=== PATIENT | female | born 1975 | race Caucasian/White ===

== ENCOUNTER 2019-08-12 14:10 | Observation (INO) ==
--- NOTE | 2019-08-12 09:52 | General Surg History&Physical ---
<Liya Juárez Nick - Last Filed: 08/12/19 09:55> Date of Encounter: 08/12/19 Time of Encounter: 09:45 Assessment and Plan (1) RUQ abdominal pain Current Visit: No Status: Acute The assessment and plan as outlined above was discussed with the patient and/or family members who expressed understanding and agreement. All questions were answered. Admit to hospital under the care of Dr. Sam C[place] IV fluids Proceed to the operating room for a laparoscopic cholecystectomy later today Supportive care and pain control IS every 1 hour while awake GI/DVT prophylaxis Ambulate TID Pre-operative antibiotics (2) Gallbladder polyp Current Visit: Yes Status: Acute The assessment and plan as outlined above was discussed with the patient and/or family members who expressed understanding and agreement. All questions were answered. Admit to hospital under the care of Dr. Sam C[place]AND IV fluids Proceed to the operating room for a laparoscopic cholecystectomy later today Supportive care and pain control IS every 1 hour while awake GI/DVT prophylaxis Ambulate TID Pre-operative antibiotics (3) Tobacco abuse Current Visit: Yes Status: Acute The assessment and plan as outlined above was discussed with the patient and/or family members who expressed understanding and agreement. All questions were answered. Nicotine patch as needed Smoking cessation education (4) Anxiety Current Visit: Yes Status: Acute The assessment and plan as outlined above was discussed with the patient and/or family members who expressed understanding and agreement. All questions were answered. Ativan prn for anxiety History of Present Illness Chief complaint: Abdominal pain with associated nausea and diarrhea HPI: Ms. Carrasco is a 43 year old female who has a complaint of right upper quadrant abdominal pain for approximately the last month. She states that the pain has progressed and is constant. She states that the pain is located in her right upper quadrant and radiates around into her back. The pain is intensified by eating any type of food at this time. She states that she is able to drink liquids. She states that anytime that she eats she either vomits or immediately has diarrhea. She reports having diarrhea anytime she tries to eat foods. She denies any melena or hematochezia. She denies any hematemesis or coffee-ground emesis. She has never had pain like this prior to 1 month ago. She admits to chills but denies any fevers. She denies any shortness of breath or chest pains. The patient has been admitted to the hospital due to the rapid progression of her symptoms and her inability to eat or drink normally. She also reports unintentional weight loss due to her inability to eat normally. She reports losing approximately 20 pounds over the past month. She is voiding without difficulty, clear yellow urine. Past Med Surg Social Fam HX - Past Medical History Source: patient, old records reviewed Medical history: non-contributory, asthma, migraine, other Additional medical history: other psoriasis. fibroids. arthropathic psoriasis. diverticulosis. hypertrophied anal papilla. anxiety. R breast calcification. tortuous colon. anal condyloma - pt denies Psychiatric history: anxiety - Past Surgical History Surgical History: appendectomy, breast surgery, hysterectomy, other Additional surgical history: excision of right thigh cyst. tubal ligation. Lap Appy. excision of right thigh cyst. B/L breast bx. right foot surgery cyst. exc of 3 scalp cust. colonoscopy. excision perianal mass - Social History Smoking Status: Current every day smoker Smokeless Tobacco Status: No Alcohol use: occasionally Drug use: none Current living situation: Home - Independent Activity Level: Independent ambulation - Family History Mother Living Status: Age at : 52 Cause of : Breast cancer Hx Family Cancer: Yes (Breast) Maternal Grandmother Living Status: Hx Family Cancer: Yes (Breast, Ovarian) Father Living Status: Still Living Paternal Grandfather Age at : 60 Cause of : Colon cancer Hx Family Cancer: Yes (Colon) Medications and Allergies Albuterol Sulfate [Proair Hfa] 2 puff IH Q6H PRN 11/04/15 [History] Budesonide/Formoterol 80/4.5 [Symbicort 80/4.5] 2 puff IH BID 11/04/15 [History] Cetirizine HCl [Zyrtec] 10 mg PO DAILY 01/09/18 [History] Secukinumab [Cosentyx Pen] 150 mg SQ QMONTH 01/09/18 [History] Docusate [Colace] 100 mg PO BID #30 capsule 01/26/19 [Rx] LORazepam [Ativan] 1 mg PO DAILY 01/26/19 [History] Montelukast [Singulair] 10 mg PO HS 01/26/19 [History] Hyoscyamine SL [Levsin SL] 0.125 mg SL Q4HR #20 tab.subl 07/24/19 [Rx] Ibuprofen 400 mg PO Q6H PRN #40 tablet 08/08/19 [Rx] Morphine Sulfate Immed Rel [Morphine Sulfate] 15 mg PO Q4HR PRN 2 Days #12 tab 08/08/19 [Rx] Ondansetron ODT [Zofran ODT] 4 mg SL Q6HR #16 tab.rapdis 08/08/19 [Rx] Allergy/AdvReac Type Severity Reaction Status Date / Time No Known Allergies Allergy Verified 01/26/19 07:04 Review of Systems All systems PM: reviewed and no additional remarkable complaints except as stated (in the HPI) All systems PM: The remainder of the systems were reviewed and are negative General Surgery Exam - General physical appearance well developed, well nourished, moderate distress, moderate pain - Eyes PERRL, normal ocular movement - ENT normal mucosa, atraumatic, normocephalic - Neck trachea midline - Respiratory normal expansion, normal respiratory effort, clear to auscultation - Cardiovascular Cardiovascular exam: Present: RRR - Abdomen Abdomen general surgery: Present: bowel sounds present, soft, tender Abdominal Tenderness: Present: RUQ - Integumentary Integumentary general surgery: Present: warm and dry - Neurologic Present: CN 2-12 grossly intact - Musculoskeletal Present: normal gait, normal posture - Psychiatric Psychiatric general surgery: Present: appropriate, oriented to person, oriented to place, oriented to time, speech is normal, memory intact Results - Labs All other labs normal. - Attending Attestation For this encounter, I have reviewed the FACILITIES MAINTENANCE ASSISTANT or PA documentation, treatment plan, and medical decision making; and I have had face to face time with this patient. <Rebecca Vargas - Last Filed: 08/12/19 17:31> Date of Encounter: 08/12/19 Assessment and Plan (1) RUQ abdominal pain Current Visit: No Status: Acute The assessment and plan as outlined above was discussed with the patient and/or family members who expressed understanding and agreement. All questions were answered. (2) Gallbladder polyp Current Visit: Yes Status: Acute The assessment and plan as outlined above was discussed with the patient and/or family members who expressed understanding and agreement. All questions were answered. (3) Tobacco abuse Current Visit: Yes Status: Acute The assessment and plan as outlined above was discussed with the patient and/or family members who expressed understanding and agreement. All questions were answered. (4) Anxiety Current Visit: Yes Status: Acute The assessment and plan as outlined above was discussed with the patient and/or family members who expressed understanding and agreement. All questions were answered. (5) Biliary colic Current Visit: Yes Status: Acute The assessment and plan as outlined above was discussed with the patient and/or family members who expressed understanding and agreement. All questions were answered. patient with symptoms of bililary colic, planning robotic cholecystectomy, possible cholangiograms, possible open, risks and benefits previously discussed and he wishes to proceed npo prn pain control ivf hydration History of Present Illness HPI: Ms. Carrasco is a 43 year old female Review of Systems All systems PM: The remainder of the systems were reviewed and are negative General Surgery Exam Initial Vital Signs Pulse Ox 99 08/12/19 09:50 Results - Labs 08/12/19 10:50 08/12/19 10:17 Abnormal lab results Chloride 108 mEq/L (98-107) H 08/12/19 10:17 Calcium 8.3 mg/dL (8.6-10.3) L 08/12/19 10:17 Diabetes panel 08/12/19 Range/Units 10:17 Sodium 139 (136-145) mEq/L Potassium 3.6 (3.5-5.1) mEq/L Chloride 108 H (98-107) mEq/L Carbon Dioxide 23 (23-29) mEq/L BUN 7 (6-20) mg/dL Creatinine 0.68 (0.60-1.20) mg/dL Glucose 80 (70-105) mg/dL Calcium 8.3 L (8.6-10.3) mg/dL AST 15 (13-39) Units/L ALT 11 (7-52) Units/L Alkaline Phosphatase 45 (34-104) Units/L Albumin 3.8 (3.5-5.7) g/dL Calcium panel 08/12/19 Range/Units 10:17 Calcium 8.3 L (8.6-10.3) mg/dL Albumin 3.8 (3.5-5.7) g/dL Pituitary panel 08/12/19 Range/Units 10:17 Sodium 139 (136-145) mEq/L Potassium 3.6 (3.5-5.1) mEq/L Chloride 108 H (98-107) mEq/L Carbon Dioxide 23 (23-29) mEq/L BUN 7 (6-20) mg/dL Creatinine 0.68 (0.60-1.20) mg/dL Glucose 80 (70-105) mg/dL Calcium 8.3 L (8.6-10.3) mg/dL Adrenal panel 08/12/19 Range/Units 10:17 Sodium 139 (136-145) mEq/L Potassium 3.6 (3.5-5.1) mEq/L Chloride 108 H (98-107) mEq/L Carbon Dioxide 23 (23-29) mEq/L BUN 7 (6-20) mg/dL Creatinine 0.68 (0.60-1.20) mg/dL Glucose 80 (70-105) mg/dL Calcium 8.3 L (8.6-10.3) mg/dL Total Bilirubin 0.4 (0.3-1.0) mg/dL AST 15 (13-39) Units/L ALT 11 (7-52) Units/L Alkaline Phosphatase 45 (34-104) Units/L Albumin 3.8 (3.5-5.7) g/dL All other labs normal. - Attending Attestation I have personally performed a face to face evaluation on this patient. I have reviewed and agree with the care plan. History and Exam by me shows:
[2019-08-12 11:24] LABS: Basophils % 0.4 %; Eosinophils # 0.2 K/mcL (0.0-0.6); Eosinophils % 1.6 %; Hematocrit 42.1 % (35.3-44.9); Hemoglobin 14.2 g/dL (11.5-15.4); Immature Granulocytes % 0.4 % (0-4); Lymphocytes # 2.2 K/mcL (0.6-4.6); Lymphocytes % 22.3 %; Mean Corpuscular HGB Conc 33.7 g/dL (31.6-35.5); Mean Corpuscular Hemoglobin 30.3 pg (28.0-33.3); Mean Platelet Volume 9.5 fL (9.4-12.4); Monocytes # 0.7 K/mcL (0.0-1.3); Monocytes % 7.4 %; Neutrophils # 6.7 K/mcL (1.6-8.9); Platelet Count 313 K/mcL (140-400); Red Blood Count 4.68 M/mcL (3.82-4.97); Red Cell Distribution Width 12.5 % (11.5-14.5); Segmented Neutrophils % 67.9 %
[2019-08-12 11:29] LABS: Alanine Aminotransferase 11 Units/L (7-52); Albumin 3.8 g/dL (3.5-5.7); Albumin/Globulin Ratio 1.5 (1.1-2.2); Alkaline Phosphatase 45 Units/L (34-104); Aspartate Amino Transferase 15 Units/L (13-39); BUN/Creatinine Ratio 10 (6-26); Bilirubin,Direct 0.1 mg/dL (0.0-0.2); Bilirubin,Indirect 0.3 mg/dL (0.0-1.2); Bilirubin,Total 0.4 mg/dL (0.3-1.0); Blood Urea Nitrogen 7 mg/dL (6-20); Calcium 8.3 mg/dL (8.6-10.3); Carbon Dioxide 23 mEq/L (23-29); Chloride 108 mEq/L (98-107); Globulin 2.6 g/dL (2.4-3.5); Glucose 80 mg/dL (70-105); Osmolality,Calculated 285 (280-300); Potassium 3.6 mEq/L (3.5-5.1); Sodium 139 mEq/L (136-145); Total Protein 6.4 g/dL (6.4-8.9); eGFR For African Americans > 60 (> 60); eGFR For Non-African Americans > 60 (> 60)
[2019-08-12 11:35] LABS: White Blood Count 9.9 K/mcL (4.3-11.1)
[~2019-08-12 14:10] MED LIST: *HR* LORazepam 2 MG/ML VIAL IVP PRN; 0.9 % Sodium Chloride 1,000 ML IVC SCH; Acetaminophen 325 MG TABLET PO PRN; Ipratropium/Albuterol Neb 3 ML IH ONE; Ipratropium/Albuterol Neb 3 ML IH PRN; Naloxone 0.4 MG/ML INJ IVP PRN; Ondansetron 4 MG/2 ML VIAL IVP PRN; cefOXitin 2,000 MG in 0.9 % Sodium Chloride Mini Bag 100 ML IVPB ONE
[2019-08-12] MEDS ORDERED: *HR* Propofol 200 MG/20 ML VIAL IVP ONE (17:11)
[2019-08-12] MEDS ORDERED: Albuterol 2.5 MG/3 ML NEBULIZER IH ONE ×2 (17:11→18:58)
[2019-08-12] MEDS ORDERED: *HR* FentaNYL (PF) 100 MCG/2 ML VIAL ONE ×2 (17:11→18:33)
[2019-08-12] MEDS ORDERED: *HR* Midazolam HCl 2 MG/2 ML VIAL ONE (17:11)
[2019-08-12] MEDS ORDERED: Lidocaine -MPF 2% 2 ML VIAL ONE (17:14)
[2019-08-12] MEDS ORDERED: Ondansetron 4 MG/2 ML VIAL ONE (17:14)
[2019-08-12] MEDS ORDERED: *HR* Rocuronium Bromide 50 MG/5 ML VIAL ONE (17:14)
[2019-08-12] MEDS ORDERED: *HR* Succinylcholine 200 MG/10 ML VIAL IVP ONE (17:14)
[2019-08-12] MEDS ORDERED: Dexamethasone 4 MG/ML VIAL ONE (17:14)
--- NOTE | 2019-08-12 17:14 | Anesthesia Evaluation PreOp ---
Date of Encounter: 08/12/19 Time of Encounter: 17:11 - Past History Planned Operation: Robotic lap sascha Cardiac History: Denies any Significant Hx Pulmonary History: Former smoker, Asthma ANTHROPOLOGY INSTRUCTOR History: Other (anxiety) Other Medical History: Denies Any Significant HX Anesthesia History: No Prior Anesthetic Complications, Past Anesthesia (R breast bx) Alcohol Use: occasionally Drug use: none Medications and Allergies Albuterol Sulfate [Proair Hfa] 2 puff IH Q6H PRN 11/04/15 [History] Budesonide/Formoterol 80/4.5 [Symbicort 80/4.5] 2 puff IH BID 11/04/15 [History] Cetirizine HCl [Zyrtec] 10 mg PO DAILY 01/09/18 [History] Secukinumab [Cosentyx Pen] 150 mg SQ QMONTH 01/09/18 [History] Docusate [Colace] 100 mg PO BID #30 capsule 01/26/19 [Rx] LORazepam [Ativan] 1 mg PO DAILY 01/26/19 [History] Montelukast [Singulair] 10 mg PO HS 01/26/19 [History] Hyoscyamine SL [Levsin SL] 0.125 mg SL Q4HR #20 tab.subl 07/24/19 [Rx] Ibuprofen 400 mg PO Q6H PRN #40 tablet 08/08/19 [Rx] Morphine Sulfate Immed Rel [Morphine Sulfate] 15 mg PO Q4HR PRN 2 Days #12 tab 08/08/19 [Rx] Ondansetron ODT [Zofran ODT] 4 mg SL Q6HR #16 tab.rapdis 08/08/19 [Rx] Allergy/AdvReac Type Severity Reaction Status Date / Time No Known Allergies Allergy Verified 01/26/19 07:04 - Meds/Allergy Pre-op Review Medications Reviewed: Yes Allergies Reviewed: Yes Beta Blockers on Current Med List: No Anesthesia Results - Labs 08/12/19 10:50 08/12/19 10:17 - Imaging EKG: report reviewed ( Interpretive Statements Sinus rhythm Electronically Signed On 07-27-2019 6:22:39 EDT by Mikel Jackson) Anesthesia Exam Vital Signs/O2 Sat, Most Current Temp Pulse Resp BP Pulse Ox 97.8 F 72 15 136/90 97 08/12/19 13:53 08/12/19 13:53 08/12/19 13:53 08/12/19 13:53 08/12/19 13:53 Weight: 92kg NPO (# of Hours): >8 - HEENT Pupil (Motor): Pupils equal, EOMI Mallampati: I Teeth: Normal Oral Opening: Greater than 3 - ANTHROPOLOGY INSTRUCTOR LOC: Oriented ANTHROPOLOGY INSTRUCTOR Motor: Normal RUE, Normal LUE, Normal RLE, Normal LLE, Normal Face ANTHROPOLOGY INSTRUCTOR Sensory: Normal: RUE, LUE, RLE, LLE, Face - Cardiac Rhythm: Regular - Pulmonary Breath Sounds: bilateral Clear Respiratory Effort: Symmetrical Anesthesia Assess/Plan ASA Score: 2 Level of consciousness: Cooperative Anesthetic Plan: General Monitoring Plan: Standard Monitors Recovery Plan: PACU
[2019-08-12] MEDS ORDERED: Lidocaine HCL 4 ML Topical Solution (Laryng-O-Jet Kit Sterile Pak) TP ONE (17:17)
[2019-08-12] MEDS ORDERED: CefOXitin 2,000 MG VIAL ONE (17:56)
--- NOTE | 2019-08-12 18:07 | Operative Note ---
Date of procedure: 08/12/19 Pre-op diagnosis: biliary colic Post-op diagnosis: same Procedure: RObotic cholecystectomy Complications: none immediate Anesthesia: JOSE, local Surgeon: Rebecca Vargas Was there an technology assistant present: Yes Seo Executive: Blanca Green Estimated blood loss (cc): 3 Specimen: gallbladder and contents Condition: stable Disposition: PACU Procedure in Detail: Patient was brought into the operating suite. Placed supine on the operating table. Sign-in was performed and everyone was in agreement. Anesthesia was induced and patient was endotracheally intubated by anesthesia without incident and they also placed an OG-tube. Patient's bilateral arms were tucked at their sides.. The abdomen was prepped and draped in the usual sterile fashion. Timeout was performed again everyone was in agreement. A supraumbilical incision was made through the skin into the subcutaneous tissue with an 11 blade. Towel clamps were placed in either side of the umbilicus for retraction. We used S retractors to dissect down to the anterior abdominal wall linea alba fascia. A Veress needle was placed in this incision and the water-drop test confirmed placement. The abdomen was insufflated. We then entered the abdomen with a 5 mm 0 degree laparoscope and a 5 mm X-candi trocar. The area under entry was visualized there was no bleeding and no apparent bowel injury. We placed an 8 mm robotic port in the left lateral abdominal wall position under direct visualization after first incising the skin with an 11 blade. We then placed a right lateral abdominal wall 8 mm robotic port under direct visualization after first incising the skin with 11 blade.The supraumbilical 5 mm port was exchanged for a 12 mm port. We placed the 5 mm port in the right abdominal wall lateral to the 8mm port, after first incising the skin with an 11 blade. The patient was placed in slight reverse Trendelenburg left side down position. The robot was brought over the patient's right abdomen and all port sites and instruments as well as the camera were docked. The dome of the gallbladder was grasped and retracted cephalad by the technology assistant. The infundibulum of the gallbladder was grasped and retracted laterally. Using a right angle heated hook we dissected out the cystic duct and cystic artery. The cystic artery was coagulated and transected with the hook cautery. Two hemoclips were placed distally on the cystic duct, 1 proximally, and it was transected with curved scissors. The gallbladder was removed off the cystic plate with the Bovie and any bleeding points were stopped with the Bovie. The gallbladder was then placed in a laparoscopic Endo Catch bag and removed via the supraumbilical incision site. The inferior edge of the liver was bluntly retracted cephalad. The cystic plate was irrigated with sterile saline. There was no bleeding and no apparent bile leak. The clips on the cystic duct were evaluated and they were intact and without any apparent bleeding or bile leak. All irrigation was suctioned free from the abdomen. All insufflation was suctioned free from the abdomen and the trochars were removed. The abdominal wall at the supraumbilical incision site was closed with an 0 Vicryl figure of 8 stitch. 30 mL of 0.5% Marcaine plain was injected subcutaneously at the 4 port sites. We closed the skin at the two 8 mm and 5 mm port site with 4-0 Monocryl interrupted subcuticular stitches. The skin at the supraumbilical incision site was closed with a 4-0 Monocryl running subcuticular stitch. Steri-Strips and mastisol were applied to all wounds. The patient was awoken in the operating suite having tolerated the procedure well and was taken to PACU in stable condition after all lap and instrument counts were correct at the end of the case.
[2019-08-12] MEDS ORDERED: EPHEDrine 50 MG/ML VIAL ONE (18:26)
[2019-08-12] MEDS ORDERED: Ketorolac 30 MG/ML VIAL ONE (18:37)
[2019-08-12] MEDS ORDERED: *HR* HYDROmorphone (PF) 1 MG/ML SYRINGE IVP PRN (18:58)
[2019-08-12] MEDS ORDERED: Ketorolac 30 MG/ML VIAL IVP ONE (18:58)
[2019-08-12] MEDS ORDERED: *HR* OxyCODONE Immed Rel 5 MG TABLET PO PRN (18:58)
[2019-08-12] MEDS ORDERED: *HR* Meperidine 25 MG/ML SYRINGE ONE (19:04)
[2019-08-12] MEDS: *HR* Meperidine 25 MG/ML SYRINGE IVP PRN ×2 (19:05→19:21)
[2019-08-12] MEDS ORDERED: *HR* OxyCODONE/APAP 5/325 TABLET PO PRN (20:12)
[2019-08-12] MEDS ORDERED: Ipratropium/Albuterol Neb 3 ML IH PRN (20:12)
[2019-08-12] MEDS ORDERED: Naloxone 0.4 MG/ML INJ IVP PRN (20:12)
[2019-08-12] MEDS ORDERED: 0.9 % Sodium Chloride 1,000 ML IVC SCH (20:12)
[2019-08-12] MEDS ORDERED: Ondansetron 4 MG/2 ML VIAL IVP PRN (20:12)
--- NOTE | 2019-08-12 22:26 | Anesthesia Evaluation Post Op ---
Date of Encounter: 08/12/19 Time of Encounter: 19:47 - Discharge PostOp Status: Transfer Patient to floor (Patient's vital signs have been reviewed. Patient is stable postoperatively and has adequately recovered from anesthesia. Patient is determined to have stable airway patency and respiratory function including respiratory rate and oxygen saturation. Patient has a stable heart rate, blood pressure and adequate hydration. Patients mental status is acceptable. Patients temperature is appropriate. Pain and nausea are adequately controlled)
[2019-08-13] MEDS ORDERED: Pantoprazole 40 MG VIAL IVP SCH ×2 (09:00)
[2019-08-13] MEDS ORDERED: Loratadine 10 MG TABLET PO SCH (09:00)
[2019-08-13] MEDS ORDERED: Ibuprofen 800 MG TABLET PO ONE (09:34)
[2019-08-13] MEDS ORDERED: Simethicone 80 MG TAB.CHEW PO STA (09:35)
--- NOTE | 2019-08-13 09:36 | Discharge Summary ---
Orders not resulted at time of discharge: Pending orders 08/12/19 18:48 Surgical Pathology [PTH] Routine Date of Encounter: 08/13/19 Time of Encounter: 11:37 - Discharge Diagnosis (1) Biliary colic Priority: Primary Status: Resolved General Surgery Exam Initial Vital Signs Pulse Ox 99 08/12/19 09:50 - General physical appearance no distress, moderate pain (controlled) - Neck trachea midline - Respiratory normal expansion, normal respiratory effort - Cardiovascular Cardiovascular exam: Present: RRR - Abdomen Abdomen general surgery: Present: bowel sounds present, soft, tender (Expected postoperative) - Incision Incision: Present: clean and dry, intact - Integumentary Integumentary general surgery: Present: warm and dry - Neurologic Present: normal sensation - Musculoskeletal Present: normal gait, normal posture - Psychiatric Psychiatric general surgery: Present: A&Ox3 - Hospital Course Hospital course: Ms. Carrasco is a 43 year old female who presented on 08/12/2019 for biliary colic. She was taken to the operating room on the same day where she underwent an uncomplicated laparoscopic cholecystectomy. This a.m. she ate bailey and sausage and stated she had abdominal pain shortly afterwards but feels like she may have tried to eat too much too quickly. Her discomfort was treated with ibuprofen, Juan David, and the lidocaine patch. She states this was effective. She refuses narcotics at discharge. She is ambulating and voiding without difficulty, tolerating a bland diet, vital signs are stable, and she is afebrile. We will begin discharge planning to home with a follow-up in approximately 2 weeks. - Time Spent with Patient Total time spent providing and/or coordinating discharge services: - Discharge Medications Prescriptions: New Docusate Sodium [Colace] 100 mg PO BID PRN #30 capsule PRN Reason: Contstipation Ibuprofen 800 mg PO Q8H PRN #30 tablet PRN Reason: Postsurgical pain Lidocaine Patch [Lidoderm 5% patch] 1 each TP DAILY PRN 7 Days #7 adh..patch PRN Reason: abdominal pain Continued Budesonide/Formoterol 80/4.5 [Symbicort 80/4.5] 2 puff IH BID Albuterol Sulfate [Proair Hfa] 2 puff IH Q6H PRN PRN Reason: Shortness Of Breath Cetirizine HCl [Zyrtec] 10 mg PO DAILY Secukinumab [Cosentyx Pen] 150 mg SQ QMONTH Montelukast [Singulair] 10 mg PO HS Fluticasone Propionate Nasal [Flonase] 2 spr NS DAILY PRN PRN Reason: Allergy Symptoms Home Medications: Albuterol Sulfate [Proair Hfa] 2 puff IH Q6H PRN 11/04/15 [History] Budesonide/Formoterol 80/4.5 [Symbicort 80/4.5] 2 puff IH BID 11/04/15 [History] Cetirizine HCl [Zyrtec] 10 mg PO DAILY 01/09/18 [History] Secukinumab [Cosentyx Pen] 150 mg SQ QMONTH 01/09/18 [History] Montelukast [Singulair] 10 mg PO HS 01/26/19 [History] Fluticasone Propionate Nasal [Flonase] 2 spr NS DAILY PRN 08/12/19 [History] Docusate Sodium [Colace] 100 mg PO BID PRN #30 capsule 08/13/19 [Rx] Ibuprofen 800 mg PO Q8H PRN #30 tablet 08/13/19 [Rx] Lidocaine Patch [Lidoderm 5% patch] 1 each TP DAILY PRN 7 Days #7 adh..patch 08/13/19 [Rx] Allergies/Adverse Reactions: Allergy/AdvReac Type Severity Reaction Status Date / Time No Known Allergies Allergy Verified 08/12/19 20:44 Date of admission: 08/12/19 09:10 Primary care physician: PCP NONE Discharging clinician: Sherie Antunez Anticipated date of discharge: 08/13/19 Labs on day of discharge: Labs from last 24 hours 08/12/19 08/12/19 08/12/19 12:05 10:50 10:17 WBC 9.9 D RBC 4.68 Hgb 14.2 Hct 42.1 MCV 90.0 MCH 30.3 MCHC 33.7 RDW 12.5 Plt Count 313 MPV 9.5 Immature Gran % 0.4 Seg Neutrophils % 67.9 Lymphocytes % 22.3 Monocytes % 7.4 Eosinophils % 1.6 Basophils % 0.4 Neutrophils # 6.7 Lymphocytes # 2.2 Monocytes # 0.7 Eosinophils # 0.2 Basophils # 0.0 Sodium 139 Potassium 3.6 Chloride 108 H Carbon Dioxide 23 BUN 7 Creatinine 0.68 Est GFR ( Amer) > 60 Est GFR (Non-Af Amer) > 60 BUN/Creatinine Ratio 10 Glucose 80 POC Glucose 77 Calculated Osmolality 285 Calcium 8.3 L Total Bilirubin 0.4 Direct Bilirubin 0.1 Indirect Bilirubin 0.3 AST 15 ALT 11 Alkaline Phosphatase 45 Serum Total Protein 6.4 Albumin 3.8 Globulin 2.6 Albumin/Globulin Ratio 1.5 - Patient Status Disposition: Home, Self-Care Condition: Good Functional capacity at discharge: independent ambulation Overall status at discharge: patient is progressing back to baseline - Discharge Instructions Instructions: Laparoscopic Cholecystectomy (DC) Follow Up With: Sherie Antunez CNP [Advanced Practice Nurse] - 08/25/19 1:00 pm NONE,PCP [Primary Care Provider] - Additional Instructions: General Surgical Discharge Instructions 1. No pushing, pulling, or lifting greater than 15 lbs for 4 weeks. 2. You may remove your dressings and shower beginning today, but no tub baths, soaking, or swimming for 2 weeks. 3. No driving for one weeks unless otherwise specified and then you may resume driving when you are off narcotics and are safe to react in a car. 4. Apply ice 20 minutes every hour that you are awake to your abdomen and Take ibuprofen every 8 hours for discomfort. You can alternate Tylenol every 8 hours. You can also apply one lidocaine patch daily for 12 hours. The patch can also be cut in half so that you can place it on 2 different areas of the abdomen. 5. Take stool softeners (Colace) or a water based laxative (Miralax) while taking narcotics. You may hold for loose stools. 6. Report any fevers greater than 100.5F, increase abdominal discomfort, drainage that looks like pus, increased redness or pain at the surgical site, or any vomiting. 7. Report any pain in the calves, shortness of breath, or rapid heartbeat. 8. Follow-up in the office as directed. 9. If you were prescribed antibiotics, do not stop them without talking to your provider. - Diet and Activity Activity: increase activity as tolerated, return to work once cleared by your PCP/specialist Diet: advance to your usual diet
[2019-08-13 11:25] VITALS: BP 127/82
== END 2019-08-13 14:19 | disposition home or self-care (01) ==
LOC: 3ANU → EDSTATUS 17:30
PROVIDERS: ADMIT Surgery; ATTEND Surgery

== ENCOUNTER 2021-02-14 11:09 | Observation (INO) ==
[2021-02-14 11:56] LABS: Basophils % 0.1 %; Hematocrit 44.6 % (35.3-44.9); Hemoglobin 15.3 g/dL (11.5-15.4); Immature Granulocytes % 0.3 % (0-4); Lymphocytes % 6.9 %; Mean Corpuscular HGB Conc 34.3 g/dL (31.6-35.5); Mean Corpuscular Hemoglobin 30.5 pg (28.0-33.3); Mean Corpuscular Volume 88.8 fL (83.0-100.0); Mean Platelet Volume 9.4 fL (9.4-12.4); Monocytes # 0.4 K/mcL (0.0-1.3); Monocytes % 2.4 %; Neutrophils # 13.1 K/mcL (1.6-8.9); Platelet Count 364 K/mcL (140-400); Red Blood Count 5.02 M/mcL (3.82-4.97); Segmented Neutrophils % 90.3 %
[2021-02-14 11:57] LABS: White Blood Count 14.5 K/mcL (4.3-11.1)
[2021-02-14 12:10] LABS: INR 1.1; Prothrombin Time 12.6 Seconds (9.4-12.1)
[2021-02-14 12:12] LABS: Activated Partial Thrombo Time 27.8 Seconds (26.0-36.0)
[2021-02-14 12:17] LABS: Alanine Aminotransferase 15 Units/L (7-52); Albumin 4.4 g/dL (3.5-5.7); Albumin/Globulin Ratio 1.3 (1.1-2.2); Alkaline Phosphatase 71 Units/L (34-104); Aspartate Amino Transferase 16 Units/L (13-39); BUN/Creatinine Ratio 20 (6-26); Bilirubin,Total 0.4 mg/dL (0.3-1.0); Blood Urea Nitrogen 16 mg/dL (6-20); Calcium 9.8 mg/dL (8.6-10.3); Carbon Dioxide 24 mEq/L (23-29); Chloride 104 mEq/L (98-107); Globulin 3.4 g/dL (2.4-3.5); Glucose 185 mg/dL (70-105); Osmolality,Calculated 292 (280-300); Potassium 3.4 mEq/L (3.5-5.1); Sodium 138 mEq/L (136-145); Total Protein 7.8 g/dL (6.4-8.9); eGFR For African Americans > 60 (> 60); eGFR For Non-African Americans > 60 (> 60)
[2021-02-14 12:29] LABS: Thyroid Stimulating Hormone 0.402 mcIU/mL (0.340-5.600)
[2021-02-14 15:50] LABS: Bacteria,Urine Few per hpf (None-Few); Bilirubin,Urine Negative (Negative); Blood,Urine Negative (Negative); Clarity,Urine Clear (Clear); Color,Urine Light-Yellow (Yellow); Glucose,Urine (UA) Normal (Normal); Ketones,Urine Negative (Negative); Leukocyte Esterase,Urine Small (Negative); Mucus,Urine Few per lpf (None-Few); Nitrite,Urine Negative (Negative); PH,Urine 6.5 pH Units (5.0-8.0); Protein,Urine Trace mg/dL (Neg-Trace); RBC,Urine 0-3 per hpf (0-3); Specific Gravity,Urine > 1.030 (1.010-1.025); Squamous Epithelial Cell,Urine Moderate per hpf (None-Few); Urobilinogen,Urine Normal (Normal)
[2021-02-14 16:30] LABS: Troponin I < 0.03 ng/mL (< 0.04)
[2021-02-14] MEDS ORDERED: *HR* Metoprolol 5 MG/5 ML VIAL IVP ONE (16:35)
[2021-02-14] MEDS ORDERED: Naloxone 0.4 MG/ML INJ IVP PRN (17:10)
[2021-02-14] MEDS ORDERED: Ondansetron 4 MG/2 ML VIAL IVP PRN (17:10)
[2021-02-14] MEDS ORDERED: Perflutren Lipid Microsphere 1.3 ML in 0.9 % Sodium Chloride 8.7 ML IVP PRN (17:13)
[2021-02-14] MEDS: 0.9 % Sodium Chloride 1,000 ML IVC SCH (19:30)
[2021-02-14] MEDS: Budesonide/Formoterol 80/4.5 1 PUFF INH IH SCH (23:00)
[2021-02-15 01:55] LABS: Basophils # 0.1 K/mcL (0.0-0.2); Basophils % 0.4 %; Eosinophils # 0.1 K/mcL (0.0-0.6); Eosinophils % 0.7 %; Hematocrit 40.3 % (35.3-44.9); Hemoglobin 13.9 g/dL (11.5-15.4); Immature Granulocytes % 0.4 % (0-4); Lymphocytes # 3.6 K/mcL (0.6-4.6); Lymphocytes % 27.3 %; Mean Corpuscular HGB Conc 34.5 g/dL (31.6-35.5); Mean Corpuscular Hemoglobin 30.3 pg (28.0-33.3); Mean Platelet Volume 9.7 fL (9.4-12.4); Monocytes # 1.1 K/mcL (0.0-1.3); Monocytes % 7.9 %; Neutrophils # 8.5 K/mcL (1.6-8.9); Platelet Count 332 K/mcL (140-400); Red Blood Count 4.58 M/mcL (3.82-4.97); Red Cell Distribution Width 12.3 % (11.5-14.5); Segmented Neutrophils % 63.3 %; White Blood Count 13.4 K/mcL (4.3-11.1)
[2021-02-15 02:13] LABS: BUN/Creatinine Ratio 21 (6-26); Blood Urea Nitrogen 16 mg/dL (6-20); Calcium 8.8 mg/dL (8.6-10.3); Carbon Dioxide 22 mEq/L (23-29); Chloride 108 mEq/L (98-107); Cholesterol 188 mg/dL (< 200); Glucose 102 mg/dL (70-105); HDL Cholesterol 59 mg/dL (40-59); Magnesium 1.7 mg/dL (1.6-2.6); Osmolality,Calculated 289 (280-300); Phosphorous 3.4 mg/dL (2.7-4.5); Potassium 3.4 mEq/L (3.5-5.1); Sodium 139 mEq/L (136-145); Triglycerides 122 mg/dL (< 150); eGFR For African Americans > 60 (> 60); eGFR For Non-African Americans > 60 (> 60)
[2021-02-15 02:14] LABS: Chol/HDL Ratio 3.2 (0-4.9); LDL Cholesterol,Calculated 105 mg/dL (< 100)
[2021-02-15 02:15] LABS: Troponin I < 0.03 ng/mL (< 0.04)
[2021-02-15 02:36] LABS: Folate 14.4 ng/mL (3.0-16.0)
[2021-02-15] MEDS: 0.9 % Sodium Chloride 1,000 ML IVC SCH (05:04)
[2021-02-15] MEDS: Budesonide/Formoterol 80/4.5 1 PUFF INH IH SCH (10:36)
[2021-02-15 15:37] VITALS: BP 118/81
== END 2021-02-15 16:46 | disposition home or self-care (01) ==
LOC: EMEROOARM 11:09 → 3BNU 11:09 → SUATTDRO 16:59 → 3BNU 18:40
PROVIDERS: ADMIT Family Medicine; ATTEND Registered Nurse

== ENCOUNTER 2021-11-10 08:49 | Inpatient (IN) ==
[2021-11-10] MEDS ORDERED: Piperacillin/Tazobactam 3.375 GM in Water for inj. (sterile) 20 ML IVP ONE (10:00)
[2021-11-10] MEDS ORDERED: 0.9 % Sodium Chloride 1,000 ML IVC SCH ×2 (10:00→11:30)
[2021-11-10 10:12] LABS: Basophils % 0.8 %; Eosinophils # 0.2 K/mcL (0.0-0.6); Eosinophils % 3.2 %; Hematocrit 40.5 % (35.3-44.9); Hemoglobin 13.6 g/dL (11.5-15.4); Immature Granulocytes % 0.2 % (0-4); Lymphocytes # 1.2 K/mcL (0.6-4.6); Mean Corpuscular HGB Conc 33.6 g/dL (31.6-35.5); Mean Corpuscular Hemoglobin 29.8 pg (28.0-33.3); Mean Corpuscular Volume 88.6 fL (83.0-100.0); Mean Platelet Volume 9.4 fL (9.4-12.4); Monocytes # 0.5 K/mcL (0.0-1.3); Monocytes % 10.7 %; Platelet Count 354 K/mcL (140-400); Red Blood Count 4.57 M/mcL (3.82-4.97); Red Cell Distribution Width 12.8 % (11.5-14.5); Segmented Neutrophils % 61.1 %
[2021-11-10 10:20] LABS: BUN/Creatinine Ratio 14 (6-26); Blood Urea Nitrogen 10 mg/dL (6-20); Calcium 9.3 mg/dL (8.6-10.3); Carbon Dioxide 24 mEq/L (23-29); Chloride 104 mEq/L (98-107); Glucose 105 mg/dL (70-105); Osmolality,Calculated 281 (280-300); Potassium 3.3 mEq/L (3.5-5.1); Sodium 136 mEq/L (136-145); eGFR For African Americans > 60 (> 60); eGFR For Non-African Americans > 60 (> 60)
[2021-11-10] MEDS ORDERED: Ondansetron 4 MG/2 ML VIAL IVP PRN (11:23)
[2021-11-10] MEDS ORDERED: Naloxone 0.4 MG/ML INJ IVP PRN (11:23)
[2021-11-10] MEDS: *HR* Heparin 5,000 UNIT/ML VIAL SQ SCH ×2 (13:11→21:11)
[2021-11-10] MEDS: Potassium Chloride 40 MEQ in D5% in 0.45% NACL 1,000 ML IVC SCH (13:11)
[2021-11-10] MEDS: Piperacillin/Tazobactam 3.375 GM in 0.9 % Sodium Chloride Mini Bag 100 ML IVPB SCH (17:33)
[2021-11-10 18:47] LABS: Adenovirus F 40/41 PCR Not detected (Not detect); Astrovirus PCR Not detected (Not detect); C.difficile Toxin A/B Gene PCR Not detected (Not detect); Campylobacter by PCR Not detected (Not detect); Cryptosporidium by PCR Not detected (Not detect); Cyclospora cayetanensis PCR Not detected (Not detect); E. coli O157 by PCR Not detected (Not detect); Entamoeba histolytica PCR Not detected (Not detect); Enteroaggregative E.coli(EAEC) Not detected (Not detect); Enteropathogenic E.coli(EPEC) Not detected (Not detect); Enterotoxigenic E.coli (ETEC) Not detected (Not detect); Giardia lamblia PCR Not detected (Not detect); Norovirus GI/GII PCR Not detected (Not detect); Plesiomonas shigelloides PCR Not detected (Not detect); Rotavirus A PCR Not detected (Not detect); Salmonella PCR Not detected (Not detect); Sapovirus PCR Not detected (Not detect); Shig/EnteroinvasiveE coli EIEC Not detected (Not detect); Shigalike tox-prod E coli STEC Not detected (Not detect); Vibrio PCR Not detected (Not detect); Vibrio cholerae PCR Not detected (Not detect); Yersinia enterocolitica PCR Not detected (Not detect)
[2021-11-10] MEDS: Budesonide/Formoterol 80/4.5 1 PUFF INH IH SCH (21:05)
[2021-11-11] MEDS: Piperacillin/Tazobactam 3.375 GM in 0.9 % Sodium Chloride Mini Bag 100 ML IVPB SCH ×3 (02:40→17:15)
[2021-11-11 04:10] LABS: Basophils # 0.1 K/mcL (0.0-0.2); Basophils % 1.2 %; Eosinophils # 0.2 K/mcL (0.0-0.6); Eosinophils % 4.5 %; Hematocrit 38.5 % (35.3-44.9); Hemoglobin 12.7 g/dL (11.5-15.4); Immature Granulocytes % 0.2 % (0-4); Lymphocytes # 1.9 K/mcL (0.6-4.6); Lymphocytes % 46.1 %; Mean Corpuscular Hemoglobin 29.6 pg (28.0-33.3); Mean Corpuscular Volume 89.7 fL (83.0-100.0); Mean Platelet Volume 9.4 fL (9.4-12.4); Monocytes # 0.6 K/mcL (0.0-1.3); Monocytes % 14.5 %; Neutrophils # 1.3 K/mcL (1.6-8.9); Platelet Count 327 K/mcL (140-400); Red Blood Count 4.29 M/mcL (3.82-4.97); Red Cell Distribution Width 12.7 % (11.5-14.5); Segmented Neutrophils % 33.5 %
[2021-11-11 04:32] LABS: BUN/Creatinine Ratio 10 (6-26); Blood Urea Nitrogen 7 mg/dL (6-20); Calcium 8.5 mg/dL (8.6-10.3); Carbon Dioxide 20 mEq/L (23-29); Chloride 108 mEq/L (98-107); Glucose 85 mg/dL (70-105); Magnesium 1.8 mg/dL (1.6-2.6); Osmolality,Calculated 279 (280-300); Potassium 3.7 mEq/L (3.5-5.1); Sodium 136 mEq/L (136-145); eGFR For African Americans > 60 (> 60); eGFR For Non-African Americans > 60 (> 60)
[2021-11-11] MEDS: *HR* Heparin 5,000 UNIT/ML VIAL SQ SCH ×2 (05:59→14:09)
[2021-11-11] MEDS: Potassium Chloride 40 MEQ in D5% in 0.45% NACL 1,000 ML IVC SCH ×2 (06:44→17:22)
[2021-11-11] MEDS: Budesonide/Formoterol 80/4.5 1 PUFF INH IH SCH (07:44)
[2021-11-11] MEDS ORDERED: Carbidopa/Levodopa 25/100 TABLET PO PRN (17:36)
[2021-11-11] MEDS: Metoprolol XL (24 HR) Succ 50 MG TAB.ER.24H PO SCH (18:10)
[2021-11-11] MEDS: lisinopriL 5 MG TABLET PO SCH (18:10)
[2021-11-11] MEDS: Loratadine 10 MG TABLET PO SCH (20:12)
[2021-11-12 02:13] LABS: Basophils # 0.1 K/mcL (0.0-0.2); Basophils % 1.1 %; Eosinophils # 0.2 K/mcL (0.0-0.6); Eosinophils % 4.8 %; Hematocrit 38.1 % (35.3-44.9); Hemoglobin 12.8 g/dL (11.5-15.4); Immature Granulocytes % 0.2 % (0-4); Lymphocytes # 2.2 K/mcL (0.6-4.6); Lymphocytes % 48.3 %; Mean Corpuscular HGB Conc 33.6 g/dL (31.6-35.5); Mean Corpuscular Hemoglobin 30.1 pg (28.0-33.3); Mean Corpuscular Volume 89.6 fL (83.0-100.0); Mean Platelet Volume 9.1 fL (9.4-12.4); Monocytes # 0.7 K/mcL (0.0-1.3); Monocytes % 14.6 %; Neutrophils # 1.4 K/mcL (1.6-8.9); Platelet Count 318 K/mcL (140-400); Red Blood Count 4.25 M/mcL (3.82-4.97); Red Cell Distribution Width 12.7 % (11.5-14.5); White Blood Count 4.6 K/mcL (4.3-11.1)
[2021-11-12 02:32] LABS: BUN/Creatinine Ratio 4 (6-26); Blood Urea Nitrogen 3 mg/dL (6-20); Calcium 8.3 mg/dL (8.6-10.3); Carbon Dioxide 21 mEq/L (23-29); Chloride 111 mEq/L (98-107); Glucose 96 mg/dL (70-105); Osmolality,Calculated 282 (280-300); Potassium 3.8 mEq/L (3.5-5.1); Sodium 138 mEq/L (136-145); eGFR For African Americans > 60 (> 60); eGFR For Non-African Americans > 60 (> 60)
[2021-11-12] MEDS: *HR* Heparin 5,000 UNIT/ML VIAL SQ SCH ×3 (02:36→18:43)
[2021-11-12] MEDS: Piperacillin/Tazobactam 3.375 GM in 0.9 % Sodium Chloride Mini Bag 100 ML IVPB SCH ×2 (02:41→10:28)
[2021-11-12] MEDS: Budesonide/Formoterol 80/4.5 1 PUFF INH IH SCH (08:11)
[2021-11-12] MEDS: PARoxetine 10 MG TABLET PO SCH (08:57)
[2021-11-12] MEDS: lisinopriL 5 MG TABLET PO SCH (08:57)
[2021-11-12] MEDS: Metoprolol XL (24 HR) Succ 50 MG TAB.ER.24H PO SCH (08:57)
[2021-11-12] MEDS: Fluticasone Propionate Nasal 50 MCG/SPRAY BOTTLE NS SCH (15:29)
[2021-11-12] MEDS: metroNIDAZOLE 500 MG TABLET PO SCH ×2 (15:30→20:13)
[2021-11-12] MEDS: Loratadine 10 MG TABLET PO SCH (20:10)
[2021-11-13] MEDS: *HR* Heparin 5,000 UNIT/ML VIAL SQ SCH (05:17)
[2021-11-13 06:41] VITALS: BP 139/86; PULSE 79; TEMP 97.6; O2SAT 98
[2021-11-13] MEDS: Budesonide/Formoterol 80/4.5 1 PUFF INH IH SCH (08:18)
[2021-11-13] MEDS: metroNIDAZOLE 500 MG TABLET PO SCH (08:24)
[2021-11-13] MEDS: Metoprolol XL (24 HR) Succ 50 MG TAB.ER.24H PO SCH (08:24)
[2021-11-13] MEDS: PARoxetine 10 MG TABLET PO SCH (08:24)
[2021-11-13] MEDS: lisinopriL 5 MG TABLET PO SCH (08:24)
[2021-11-13] MEDS: Fluticasone Propionate Nasal 50 MCG/SPRAY BOTTLE NS SCH (08:25)
[2021-11-17] MEDS ORDERED: Methotrexate PFS 25 MG/ML VIAL IM SCH (09:00)
== END 2021-11-13 12:18 | disposition home or self-care (01) | DRG 392 ==
LOC: 3ANU 08:49 → EMEROOARM 08:49 → OBSVTOIN 11:29 → SUATTDRO 11:29 → 3ANU 13:02
PROVIDERS: ADMIT Hospitalist; ATTEND Family Medicine